=== PATIENT | male | born 1960 | race Caucasian/White ===

== ENCOUNTER 2021-07-28 21:43 | Inpatient (IN) | payer SELFPAY ==
[~2021-07-28] VITALS: Ht 170.2 cm; Wt 57.3 kg
[2021-07-28] MEDS ORDERED: LORazepam 2 MG/ML VIAL IV STA (22:15)
[2021-07-28] MEDS: IPRATROPIUM 0.5MG/ALBUTEROL 2.5MG INH SOL UD 3ML (DUONEB) NEB PRN ×2 (22:16→22:17)
[2021-07-28 22:19] LABS: ABG BASE EXCESS -0.5 (-2.0-2.0); ABG HCO3 21.1 MEQ/L (22.0-26.0); ABG O2 SATURATION 99.3 % (95.0-99.0); ABG PARTIAL PRESSURE CO2 27.1 mmHg (35.0-45.0); ABG PARTIAL PRESSURE O2 155.3 mmHg (75.0-100.0); ABG STANDARD HCO3 24.2 MEQ/L (22.0-26.0); ABG TOTAL CO2 21.9 MEQ/L (23.0-31.0); ABG pH (ARTERIAL) 7.509 UNITS (7.350-7.450)
[2021-07-28 22:23] LABS: BASO % 0.5 % (0.0-1.0); HEMATOCRIT 42.5 % (42.0-52.0); HEMOGLOBIN 14.8 g/dl (13.5-17.5); LYMPH # 1.5 10^3/uL (1.5-5.0); LYMPH % 16.8 % (24.0-44.0); MEAN CORPUSCULAR HEMOGLOBIN 32.4 pg (27.0-33.0); MEAN CORPUSCULAR HGB CONC 34.8 g/dl (32.0-36.5); NEUTROPHILS # 5.3 10^3/uL (1.5-8.5); NEUTROPHILS % 60.8 % (36.0-66.0); PLATELET COUNT, AUTOMATED 153 10^3/uL (150-450); RED BLOOD COUNT 4.57 10^6/uL (4.30-6.10); WHITE BLOOD COUNT 8.6 10^3/uL (4.0-10.0)
[2021-07-28 22:40] LABS: INR 1.8; PROTHROMBIN TIME 21.3 SECONDS (12.7-14.5)
[2021-07-28 22:51] LABS: ALBUMIN 1.9 GM/DL (3.2-5.2); ALT/SGPT 29 U/L (12-78); BILIRUBIN,DIRECT 2.3 MG/DL (0.0-0.2); BILIRUBIN,TOTAL 3.7 MG/DL (0.2-1.0); BLOOD UREA NITROGEN 5 MG/DL (7-18); CALCIUM LEVEL 7.4 MG/DL (8.8-10.2); CARBON DIOXIDE LEVEL 25 MEQ/L (21-32); CHLORIDE LEVEL 99 MEQ/L (98-107); CREATININE FOR GFR 0.98 MG/DL (0.70-1.30); GLOMERULAR FILTRATION RATE > 60.0 (>49); GLUCOSE, FASTING 164 MG/DL (70-100); NT-PRO BNP 443 PG/ML (<125); POTASSIUM SERUM 3.2 MEQ/L (3.5-5.1); SODIUM LEVEL 131 MEQ/L (136-145); TOTAL PROTEIN 7.5 GM/DL (6.4-8.2)
[2021-07-28 23:06] LABS: MONO # 1.8 10^3/uL (0.0-0.8); MONO % 21.1 % (2.0-8.0)
[2021-07-28] MEDS ORDERED: NS 1,000 ML IV ONE (23:15)
[2021-07-28] MEDS ORDERED: HOME MED LIST COMPLETE! XX SCH (23:35)
[2021-07-29] VITALS (12 sets, daily range): BP systolic 83–130; BP diastolic 55–81
[2021-07-29] MEDS ORDERED: ACETAMINOPHEN TAB 650MG DOSE (2X325MG) PO PRN (00:25)
[2021-07-29] MEDS ORDERED: MAALOX 30 ML SUSP *UDC PO PRN (00:25)
[2021-07-29] MEDS ORDERED: MOM 30ML SUSPENSION UDC PO PRN (00:25)
[2021-07-29] MEDS ORDERED: POTASSIUM CHLORIDE 10MEQ SR TABLET PO ONE (00:30)
[2021-07-29] MEDS ORDERED: LORazepam 2 MG/ML VIAL IV STA ×2 (00:34→06:11)
[2021-07-29] MEDS ORDERED: IPRATROPIUM 0.5MG/ALBUTEROL 2.5MG INH SOL UD 3ML (DUONEB) NEB PRN (00:40)
[2021-07-29] MEDS ORDERED: LORazepam 2 MG TAB PO PRN (00:45)
[2021-07-29] MEDS: OXAZEPAM 10 MG CAP PO SCH ×3 (03:44→15:24)
[2021-07-29] MEDS: THIAMINE INJection 500 MG in NS 100 ML IV SCH ×3 (06:00→22:52)
[2021-07-29 06:17] LABS: HEMATOCRIT 41.3 % (42.0-52.0); HEMOGLOBIN 13.4 g/dl (13.5-17.5); MEAN CORPUSCULAR HEMOGLOBIN 32.1 pg (27.0-33.0); MEAN CORPUSCULAR HGB CONC 32.4 g/dl (32.0-36.5); MEAN CORPUSCULAR VOLUME 98.8 fl (80.0-96.0); PLATELET COUNT, AUTOMATED 121 10^3/uL (150-450); RED BLOOD COUNT 4.18 10^6/uL (4.30-6.10); WHITE BLOOD COUNT 2.4 10^3/uL (4.0-10.0)
[2021-07-29 06:27] LABS: INR 2.13; PROTHROMBIN TIME 24.2 SECONDS (12.7-14.5)
[2021-07-29 06:28] LABS: FIBRINOGEN 251 MG/DL (268-480); PARTIAL THROMBOPLASTIN TIME 48.6 SECONDS (25.9-37.0)
[2021-07-29 06:43] LABS: ALBUMIN 1.6 GM/DL (3.2-5.2); ALT/SGPT 28 U/L (12-78); BILIRUBIN,TOTAL 3.1 MG/DL (0.2-1.0); BLOOD UREA NITROGEN 6 MG/DL (7-18); CALCIUM LEVEL 7.8 MG/DL (8.8-10.2); CARBON DIOXIDE LEVEL 21 MEQ/L (21-32); CHLORIDE LEVEL 103 MEQ/L (98-107); CREATININE FOR GFR 1.03 MG/DL (0.70-1.30); GLOMERULAR FILTRATION RATE > 60.0 (>49); GLUCOSE, FASTING 159 MG/DL (70-100); POTASSIUM SERUM 3.9 MEQ/L (3.5-5.1); SODIUM LEVEL 134 MEQ/L (136-145); TOTAL PROTEIN 7.2 GM/DL (6.4-8.2)
[2021-07-29 06:46] LABS: C REACTIVE PROTEIN QUANTITATIV 0.83 MG/DL (0.00-0.30)
[2021-07-29] MEDS ORDERED: NS 1,000 ML IV ONE (06:50)
[2021-07-29 07:27] LABS: D-DIMER QUANT > 4000 ng/ml (<500)
[2021-07-29] MEDS: FOLIC ACID 1 MG TAB PO SCH (07:48)
[2021-07-29] MEDS: BARICITINIB 2MG TABLET (OLUMIANT) FOR EUA PO SCH (07:49)
[2021-07-29] MEDS: dexameTHASONE 4 MG/ML 1ML VIAL (J1100 PER 1MG) IV SCH (07:50)
[2021-07-29] MEDS: ENOXAPARIN 40MG/0.4ML SYRINGE (J1650 PER 10MG) SC SCH (07:50)
[2021-07-29 07:53] LABS: ATYPICAL LYMPH 4 % (0-5); LYMPHOCYTES 11 % (16-44); MONOCYTES 3 % (0-5); NEUTROPHILS 79 % (28-66)
[2021-07-29 07:54] LABS: ROULEAUX 3+
[2021-07-29 07:55] LABS: PLATELET ESTIMATE DECREASED (NORMAL)
[2021-07-29] MEDS ORDERED: MULTIVITAMINS/MINERALS THERAP 1 TAB PO SCH (09:00)
[2021-07-29] MEDS: LORazepam 2 MG/ML VIAL IV PRN ×2 (11:15→20:55)
[2021-07-29] MEDS ORDERED: MULTIVITAMIN -ADULT INJECTION 10 ML, THIAMINE INJection 100 MG, FOLIC ACID 1 MG in NS 1... IV ONE (13:00)
[2021-07-29 13:16] LABS: HEMOGLOBIN A1c 4.7 %
[2021-07-29] MEDS ORDERED: LORazepam 2 MG/ML VIAL IV PRN (22:25)
[2021-07-30] VITALS (23 sets, daily range): BP systolic 82–136; BP diastolic 50–75
[2021-07-30 04:16] LABS: HEMATOCRIT 36.1 % (42.0-52.0); HEMOGLOBIN 12.1 g/dl (13.5-17.5); MEAN CORPUSCULAR HEMOGLOBIN 32.4 pg (27.0-33.0); MEAN CORPUSCULAR HGB CONC 33.5 g/dl (32.0-36.5); MEAN CORPUSCULAR VOLUME 96.8 fl (80.0-96.0); PLATELET COUNT, AUTOMATED 113 10^3/uL (150-450); RED BLOOD COUNT 3.73 10^6/uL (4.30-6.10); WHITE BLOOD COUNT 7.9 10^3/uL (4.0-10.0)
[2021-07-30 06:06] LABS: ALBUMIN 1.5 GM/DL (3.2-5.2); ALT/SGPT 23 U/L (12-78); BILIRUBIN,TOTAL 2.9 MG/DL (0.2-1.0); BLOOD UREA NITROGEN 9 MG/DL (7-18); CALCIUM LEVEL 7.5 MG/DL (8.8-10.2); CARBON DIOXIDE LEVEL 25 MEQ/L (21-32); CHLORIDE LEVEL 114 MEQ/L (98-107); CREATININE FOR GFR 0.46 MG/DL (0.70-1.30); GLOMERULAR FILTRATION RATE > 60.0 (>49); GLUCOSE, FASTING 113 MG/DL (70-100); SODIUM LEVEL 145 MEQ/L (136-145); TOTAL PROTEIN 6.1 GM/DL (6.4-8.2)
[2021-07-30] MEDS: THIAMINE INJection 500 MG in NS 100 ML IV SCH ×3 (06:44→22:00)
[2021-07-30] MEDS: OXAZEPAM 10 MG CAP PO SCH ×3 (06:44→22:00)
[2021-07-30 08:16] LABS: MAGNESIUM LEVEL 1.8 MG/DL (1.7-2.2)
[2021-07-30] MEDS: FOLIC ACID 1 MG TAB PO SCH (08:17)
[2021-07-30] MEDS: ENOXAPARIN 40MG/0.4ML SYRINGE (J1650 PER 10MG) SC SCH (08:17)
[2021-07-30] MEDS: BARICITINIB 2MG TABLET (OLUMIANT) FOR EUA PO SCH (08:17)
[2021-07-30] MEDS: dexameTHASONE 4 MG/ML 1ML VIAL (J1100 PER 1MG) IV SCH (08:17)
[2021-07-30] MEDS: NS 1,000 ML IV SCH ×2 (14:00→20:03)
[2021-07-30] MEDS: LACTULOSE 20 GM/30 ML SYRUP UD PO SCH ×2 (14:01→18:06)
[2021-07-30] MEDS ORDERED: NS 1,000 ML IV ONE ×2 (15:35→18:15)
[2021-07-30 17:31] LABS: MAGNESIUM LEVEL 1.9 MG/DL (1.7-2.2)
[2021-07-30 18:00] LABS: APPEARANCE, URINE CLEAR (CLEAR); BACTERIA, URINE AUTO NEGATIVE (NEGATIVE); BILIRUBIN, URINE AUTO 2+ (NEGATIVE); BLOOD, URINE BLOOD 2+ (NEGATIVE); COLOR, URINE AMBER (YELLOW); GLUCOSE, URINE (UA) AUTO NEGATIVE (NEGATIVE); KETONE, URINE AUTO NEGATIVE (NEGATIVE); LEUKOCYTE ESTERASE, URINE AUTO NEGATIVE (NEGATIVE); MUCUS, URINE SMALL (NEGATIVE); NITRITE, URINE AUTO NEGATIVE (NEGATIVE); PROTEIN, URINE AUTO 1+ mg/dL (NEGATIVE); RBC, URINE AUTO 40 /HPF (0-3); SPECIFIC GRAVITY URINE AUTO 1.027 (1.002-1.035); SQUAMOUS EPITHELIAL CELL UR AU 0 /HPF (0-6); WBC, URINE AUTO 3 /HPF (0-3)
[2021-07-30] MEDS: LORazepam 2 MG/ML VIAL IV PRN ×2 (18:06→20:57)
[2021-07-30 18:10] LABS: AMPHETAMINES URINE REFLEX NEGATIVE (NEGATIVE); BARBITURATES URINE REFLEX NEGATIVE (NEGATIVE); BENZODIAZEPINES URINE REFLEX PENDING CONFIRMATION (NEGATIVE); COCAINE METABOLITE URINE REFLE NEGATIVE (NEGATIVE); METHADONE URINE REFLEX NEGATIVE (NEGATIVE); OPIATES URINE REFLEX NEGATIVE (NEGATIVE); PHENCYCLIDINE URINE REFLEX NEGATIVE (NEGATIVE)
[2021-07-30 18:14] LABS: CANNABINOIDS URINE REFLEX PENDING CONFIRMATION (NEGATIVE)
[2021-07-31] VITALS (66 sets, daily range): BP systolic 67–146; BP diastolic 47–96
[2021-07-31] MEDS: LACTULOSE 20 GM/30 ML SYRUP UD PO SCH ×5 (00:16→23:48)
[2021-07-31] MEDS: NS 1,000 ML IV SCH (04:17)
[2021-07-31 04:39] LABS: HEMATOCRIT 39.9 % (42.0-52.0); HEMOGLOBIN 12.9 g/dl (13.5-17.5); MEAN CORPUSCULAR HEMOGLOBIN 31.7 pg (27.0-33.0); MEAN CORPUSCULAR HGB CONC 32.3 g/dl (32.0-36.5); PLATELET COUNT, AUTOMATED 133 10^3/uL (150-450); RED BLOOD COUNT 4.07 10^6/uL (4.30-6.10); WHITE BLOOD COUNT 8.7 10^3/uL (4.0-10.0)
[2021-07-31 06:03] LABS: ALBUMIN 1.6 GM/DL (3.2-5.2); ALT/SGPT 34 U/L (12-78); BILIRUBIN,TOTAL 3.1 MG/DL (0.2-1.0); BLOOD UREA NITROGEN 15 MG/DL (7-18); CALCIUM LEVEL 7.6 MG/DL (8.8-10.2); CARBON DIOXIDE LEVEL 26 MEQ/L (21-32); CHLORIDE LEVEL 119 MEQ/L (98-107); CREATININE FOR GFR 0.72 MG/DL (0.70-1.30); GLOMERULAR FILTRATION RATE > 60.0 (>49); GLUCOSE, FASTING 101 MG/DL (70-100); POTASSIUM SERUM 4.2 MEQ/L (3.5-5.1); SODIUM LEVEL 149 MEQ/L (136-145); TOTAL PROTEIN 6.4 GM/DL (6.4-8.2)
[2021-07-31] MEDS: OXAZEPAM 10 MG CAP PO SCH (06:06)
[2021-07-31] MEDS: THIAMINE INJection 500 MG in NS 100 ML IV SCH ×3 (06:07→22:37)
[2021-07-31] MEDS ORDERED: LIDOCAINE 1% MDV 20ML VIAL As Ordered ONE (07:11)
[2021-07-31] MEDS: FOLIC ACID 1 MG TAB PO SCH (09:00)
[2021-07-31] MEDS ORDERED: NS 1,000 ML IV ONE ×2 (09:05→10:50)
[2021-07-31] MEDS: dexameTHASONE 4 MG/ML 1ML VIAL (J1100 PER 1MG) IV SCH (09:21)
[2021-07-31] MEDS: ENOXAPARIN 40MG/0.4ML SYRINGE (J1650 PER 10MG) SC SCH (09:21)
[2021-07-31] MEDS ORDERED: SODIUM CHLORIDE 0.9% INJ 10 ML SYR IV PRN (10:45)
[2021-07-31] MEDS: PIPERACILLIN/TAZOBACTAM SOD 4.5 GM in D5W MINI-BAG PLUS 50 ML IV SCH ×3 (11:01→22:37)
[2021-07-31] MEDS ORDERED: VANCOMYCIN HCL 500 MG in D5W MINI-BAG PLUS 100 ML IV ONE (12:00)
[2021-07-31] MEDS: VANCOMYCIN HCL 1,000 MG, VIAL MATE ADAPTER 1 EACH in NS 250 ML IV SCH ×2 (12:15→23:48)
[2021-07-31] MEDS: LR 1,000 ML IV SCH ×2 (12:15→18:03)
[2021-07-31] MEDS ORDERED: NOREPINEPHRINE BITARTRATE 8 MG in D5W 492 ML IV SCH (14:00)
[2021-07-31] MEDS ORDERED: NOREPINEPHRINE 4 MG/4 ML AMP As Ordered ONE (14:12)
[2021-07-31] MEDS: LORazepam 2 MG/ML VIAL IV PRN (15:09)
[2021-07-31 15:20] LABS: MAGNESIUM LEVEL 2.1 MG/DL (1.7-2.2)
[2021-07-31] MEDS: SODIUM CHLORIDE 0.9% INJ 10 ML SYR IV SCH (15:53)
[2021-08-01] VITALS (22 sets, daily range): BP systolic 97–154; BP diastolic 61–101
[2021-08-01] MEDS ORDERED: NOREPINEPHRINE BITARTRATE 8 MG in D5W 492 ML IV SCH (02:00)
[2021-08-01] MEDS: LORazepam 2 MG/ML VIAL IV PRN ×5 (02:10→20:16)
[2021-08-01] MEDS: LR 1,000 ML IV SCH (02:17)
[2021-08-01] MEDS: PIPERACILLIN/TAZOBACTAM SOD 4.5 GM in D5W MINI-BAG PLUS 50 ML IV SCH ×4 (04:53→22:35)
[2021-08-01 05:17] LABS: HEMATOCRIT 30.8 % (42.0-52.0); MEAN CORPUSCULAR HEMOGLOBIN 32.2 pg (27.0-33.0); MEAN CORPUSCULAR HGB CONC 32.8 g/dl (32.0-36.5); MEAN CORPUSCULAR VOLUME 98.1 fl (80.0-96.0); PLATELET COUNT, AUTOMATED 113 10^3/uL (150-450); RED BLOOD COUNT 3.14 10^6/uL (4.30-6.10); WHITE BLOOD COUNT 7.4 10^3/uL (4.0-10.0)
[2021-08-01 05:22] LABS: HEMOGLOBIN 10.1 g/dl (13.5-17.5)
[2021-08-01 05:30] LABS: ALBUMIN 1.4 GM/DL (3.2-5.2); ALT/SGPT 30 U/L (12-78); BILIRUBIN,TOTAL 2.4 MG/DL (0.2-1.0); BLOOD UREA NITROGEN 15 MG/DL (7-18); CALCIUM LEVEL 7.4 MG/DL (8.8-10.2); CARBON DIOXIDE LEVEL 27 MEQ/L (21-32); CHLORIDE LEVEL 115 MEQ/L (98-107); CREATININE FOR GFR 0.68 MG/DL (0.70-1.30); GLOMERULAR FILTRATION RATE > 60.0 (>49); GLUCOSE, FASTING 143 MG/DL (70-100); POTASSIUM SERUM 4.1 MEQ/L (3.5-5.1); SODIUM LEVEL 148 MEQ/L (136-145); TOTAL PROTEIN 5.4 GM/DL (6.4-8.2)
[2021-08-01] MEDS: SODIUM CHLORIDE 0.9% INJ 10 ML SYR IV SCH ×2 (06:45→18:31)
[2021-08-01] MEDS: LACTULOSE 20 GM/30 ML SYRUP UD PO SCH ×2 (06:46→12:19)
[2021-08-01] MEDS: FOLIC ACID 1 MG TAB PO SCH (09:00)
[2021-08-01] MEDS: dexameTHASONE 4 MG/ML 1ML VIAL (J1100 PER 1MG) IV SCH (09:31)
[2021-08-01] MEDS: ENOXAPARIN 40MG/0.4ML SYRINGE (J1650 PER 10MG) SC SCH (09:31)
[2021-08-01] MEDS ORDERED: LORazepam 2 MG/ML VIAL As Ordered ONE ×3 (09:48→16:29)
[2021-08-01] MEDS: GASTROGRAFIN SOLUTION 30ML PO SCH ×2 (12:00→12:19)
[2021-08-01] MEDS ORDERED: ISOVUE-370 76% 100ML VIAL As Ordered ONE (12:51)
[2021-08-01 17:34] LABS: MAGNESIUM LEVEL 1.9 MG/DL (1.7-2.2)
[2021-08-01] MEDS ORDERED: HALOPERIDOL 5MG/ML VIAL (J1630 PER 1) IV ONE (19:40)
[2021-08-02] VITALS: BP 123/76
[2021-08-02] MEDS ORDERED: OLANZapine INTRAMUSCULAR 10MG VIAL IM ONE
[2021-08-02] MEDS: LORazepam 2 MG/ML VIAL IV PRN ×7 (01:49→22:23)
[2021-08-02 04:01] LABS: HEMATOCRIT 35.1 % (42.0-52.0); HEMOGLOBIN 11.7 g/dl (13.5-17.5); MEAN CORPUSCULAR HEMOGLOBIN 32.1 pg (27.0-33.0); MEAN CORPUSCULAR HGB CONC 33.3 g/dl (32.0-36.5); MEAN CORPUSCULAR VOLUME 96.4 fl (80.0-96.0); RED BLOOD COUNT 3.64 10^6/uL (4.30-6.10); WHITE BLOOD COUNT 4.9 10^3/uL (4.0-10.0)
[2021-08-02 04:26] LABS: PLATELET COUNT, AUTOMATED 93 10^3/uL (150-450)
[2021-08-02] MEDS: PIPERACILLIN/TAZOBACTAM SOD 4.5 GM in D5W MINI-BAG PLUS 50 ML IV SCH (04:29)
[2021-08-02 05:31] LABS: ALBUMIN 1.7 GM/DL (3.2-5.2); ALT/SGPT 47 U/L (12-78); BILIRUBIN,TOTAL 3.8 MG/DL (0.2-1.0); BLOOD UREA NITROGEN 15 MG/DL (7-18); CALCIUM LEVEL 7.9 MG/DL (8.8-10.2); CARBON DIOXIDE LEVEL 28 MEQ/L (21-32); CHLORIDE LEVEL 114 MEQ/L (98-107); CREATININE FOR GFR 0.67 MG/DL (0.70-1.30); GLOMERULAR FILTRATION RATE > 60.0 (>49); GLUCOSE, FASTING 108 MG/DL (70-100); POTASSIUM SERUM 3.9 MEQ/L (3.5-5.1); SODIUM LEVEL 148 MEQ/L (136-145); TOTAL PROTEIN 6.1 GM/DL (6.4-8.2)
[2021-08-02 05:56] VITALS: BP 92/57
[2021-08-02 06:00] VITALS: BP 92/57
[2021-08-02] MEDS: SODIUM CHLORIDE 0.9% INJ 10 ML SYR IV SCH (06:29)
[2021-08-02] MEDS: MORPHINE 2 MG/ML 1ML VIAL (J2270) IV PRN ×5 (11:38→22:24)
[2021-08-02 12:30] LABS: MAGNESIUM LEVEL 2.3 MG/DL (1.8-2.4)
[2021-08-02] MEDS: SCOPOLAMINE 1MG TRANSDERMAL PATCH TOP PRN (22:45)
[2021-08-03] MEDS: LORazepam 2 MG/ML VIAL IV PRN ×10 (00:24→23:12)
[2021-08-03] MEDS: MORPHINE 2 MG/ML 1ML VIAL (J2270) IV PRN ×10 (00:25→23:12)
[2021-08-04] MEDS: MORPHINE 2 MG/ML 1ML VIAL (J2270) IV PRN ×4 (01:22→07:04)
[2021-08-04] MEDS: LORazepam 2 MG/ML VIAL IV PRN ×11 (01:22→23:20)
[2021-08-04] MEDS: SCOPOLAMINE 1MG TRANSDERMAL PATCH TOP PRN (09:28)
[2021-08-04] MEDS: MORPHINE 4 MG/ML 1ML VIAL/SYRINGE (J2270) IV PRN ×7 (09:28→23:20)
[2021-08-05] MEDS: LORazepam 2 MG/ML VIAL IV PRN ×11 (01:24→22:00)
[2021-08-05] MEDS: MORPHINE 4 MG/ML 1ML VIAL/SYRINGE (J2270) IV PRN ×10 (01:25→19:44)
[2021-08-05] MEDS: MORPHINE 10MG/0.5ML ORAL CONCENTRATE SOLUTION U/D SL PRN (22:00)
[2021-08-06] MEDS: MORPHINE 10MG/0.5ML ORAL CONCENTRATE SOLUTION U/D SL PRN ×7 (00:14→16:46)
[2021-08-06] MEDS: LORazepam 2 MG/ML VIAL IV PRN ×9 (00:14→20:43)
[2021-08-06] MEDS ORDERED: MORPHINE SULF IN 0.9% NACL 100 MG in IV 1 EA IV SCH ×2 (18:00)
[2021-08-08 20:12] LABS: Benzodiazepines Positive (.); Cannabinoid Positive (.); Carboxy THC Conf, MS, UR 266 ng/mL (Cutoff=10); OH-Alprazolam Negative (Cutoff=300); Oxazepam,Conf, MS,UR >1000 ng/mL (Cutoff=300)
== END 2021-08-06 22:52 | disposition expired | DRG 137 ==
LOC: M ED 21:43 → M ED INP 07-29 00:22 → ENRESERV 07-29 15:21 → M ICU 07-29 16:14 → M 4MAIN 08-02 15:20
PROVIDERS: ADMIT Family Medicine; ATTEND General Practice
PROC: 02HV33Z Insertion of Infusion Device into Superior Vena Cava, Percutaneous Approach (ICD-10-PCS; principal; 2021-07-31 08:00)
DX: U07.1 COVID-19 (principal); R65.21 Severe sepsis with septic shock; J69.0 Pneumonitis due to inhalation of food and vomit; J12.82 Pneumonia due to coronavirus disease 2019; A41.9 Sepsis, unspecified organism; E87.2 Acidosis; K70.30 Alcoholic cirrhosis of liver without ascites; J44.1 Chronic obstructive pulmonary disease with (acute) exacerbation; E51.2 Wernicke's encephalopathy; F17.200 Nicotine dependence, unspecified, uncomplicated; E87.6 Hypokalemia; R68.0 Hypothermia, not associated with low environmental temperature